=== PATIENT | female | born 1985 | race Caucasian/White ===

== ENCOUNTER 2016-12-03 08:21 | Emergency (ER) | payer MEDICAID ==
[~2016-12-03] VITALS: Ht 167.6 cm; Wt 69.4 kg
[~2016-12-03 08:21] MED LIST: PREN-96 PO
[2016-12-03 08:59] LABS: Urine Bilirubin Negative (Negative); Urine Blood Negative /uL (Negative); Urine Color Yellow (Yellow); Urine Glucose Normal (Normal); Urine Ketone Negative (Negative); Urine Mucus FEW (None Seen); Urine Nitrite Negative (Negative); Urine RBC 1 /hpf (0 - 4); Urine Squamous Epithelial Cell FEW /hpf (<5); Urine Urobilinogen Normal (Negative)
[2016-12-03] MEDS ORDERED: PANTOPRAZOLE 40 MG TAB PO ONE (10:45)
[2016-12-03 13:28] VITALS: BP 113/65
== END 2016-12-03 13:44 | disposition home or self-care (01) ==
LOC: ER 08:22
DX: O23.41 Unspecified infection of urinary tract in pregnancy, first trimester (principal); Z3A.01 Less than 8 weeks gestation of pregnancy
CPT/HCPCS: 36415; 76801; 76817; 81001; 84702

== ENCOUNTER 2017-10-04 09:08 | Emergency (ER) | payer MEDICAID ==
[~2017-10-04] VITALS: Ht 167.6 cm; Wt 71.7 kg
[2017-10-04 09:24] VITALS: BP 100/75
[2017-10-04] MEDS ORDERED: IBUPROFEN 800 MG TAB PO ONE (09:30)
[2017-10-04 10:14] LABS: Urine Bacteria NONE SEEN /hpf (None Seen); Urine Blood Negative /uL (Negative); Urine Specific Gravity 1.021 (1.001-1.035); Urine WBC 2 /hpf (0 - 5)
[2017-10-04] MEDS ORDERED: PROMETHAZINE W/CODEINE 5 ML ORAL SYRUP PO ONE (10:15)
[2017-10-04] MEDS ORDERED: ACETAMINOPHEN 500 MG TAB PO ONE ×2 (11:15)
== END 2017-10-04 10:59 | disposition home or self-care (01) ==
LOC: ER 09:08
DX: J02.9 Acute pharyngitis, unspecified (principal)
CPT/HCPCS: 81001; 87804

== ENCOUNTER 2021-11-12 06:40 | Emergency (ER) | payer MEDICAID ==
[~2021-11-12] VITALS: Ht 167.6 cm; Wt 86.2 kg
[2021-11-12 06:42] VITALS: BP 124/89
[2021-11-12 07:08] LABS: Urine Bacteria NONE SEEN /hpf (None Seen); Urine Blood Negative /uL (Negative); Urine Budding Yeast OCCASIONAL /hpf (None Seen); Urine Specific Gravity 1.009 (1.001-1.035); Urine WBC 54 /hpf (0 - 5); Urine WBC Clumps PRESENT /hpf (None Seen)
[2021-11-12] MEDS ORDERED: CIPR500T4 PO (07:41)
[2021-11-12] MEDS ORDERED: cefTRIAXone SOD 1,000 MG VL IM ONE (07:45)
== END 2021-11-12 07:47 | disposition home or self-care (01) ==
LOC: ER 06:40
DX: N39.0 Urinary tract infection, site not specified (principal); Z79.2 Long term (current) use of antibiotics; Z79.899 Other long term (current) drug therapy
CPT/HCPCS: 81001; 81025; 87086; 87088; 87186

== ENCOUNTER 2022-03-11 23:41 | Emergency (ER) | payer MEDICAID ==
[~2022-03-11] VITALS: Ht 167.6 cm; Wt 84.0 kg
[~2022-03-11 23:41] MED LIST changes: +CIPR500T4 PO
[2022-03-11 23:53] VITALS: BP 118/85
== END 2022-03-12 06:19 | disposition left against medical advice (07) ==
LOC: ER 23:41
DX: S90.562A Insect bite (nonvenomous), left ankle, initial encounter (principal); S90.561A Insect bite (nonvenomous), right ankle, initial encounter; Z53.21 Procedure and treatment not carried out due to patient leaving prior to being seen by health care provider; W57.XXXA Bitten or stung by nonvenomous insect and other nonvenomous arthropods, initial encounter; Y93.89 Activity, other specified; Y92.89 Other specified places as the place of occurrence of the external cause; Y99.8 Other external cause status